=== PATIENT | female | born 1950 | race Hispanic/Latino ===

== ENCOUNTER 2017-06-22 15:33 | Emergency (ER) | payer BC ==
[2017-06-22] MEDS ORDERED: Sodium Chloride 0.9% 1,000 ML IV STA ×3 (16:03→17:45)
--- NOTE | 2017-06-22 16:19 | ED PDOC ---
HPI: General Adult Time Seen by Provider: 06/22/17 15:47 Chief Complaint (Nursing): Palpitations Chief Complaint (Provider): nausea, palpitations, hyperglycemia History/Exam Limitations: no limitations Have you had recent travel within the past 21 days to any of the following countries: [place], [place], [place] or [place]?: No Current Symptoms Are (Timing): Still Present Severity: Moderate Recently: Treated By A Physician Additional Complaint(s): 66yo female presents on recommendation of urgent care center for palpitations, nausea/vomiting and elevated blood sugar approx 240 at . States symptoms started yesterday afternoon, progressed today prompting UC visit. Denies polyuria, polydipsia or abdominal pain. Denies taking insulin prior, only oral medications sugars normally run 170-200. Recently started hydralazine for BP, hasnt taken for several days. Has poor tolerance to beta blockers in past. Past Medical History Reviewed: Historical Data, Nursing Documentation, Vital Signs Vital Signs: Last Vital Signs Temp 98.3 F 06/22/17 15:38 Pulse 112 H 06/22/17 16:23 Resp 18 06/22/17 15:38 BP 113/65 06/22/17 15:38 Pulse Ox 95 06/22/17 16:23 - Medical History PMH: Diabetes, HTN Other PMH: ulcerative colitis; on hormone replacement estrogen - Surgical History Surgical History: Cholecystectomy Other surgeries: sinus - Family History Family History: States: Unknown Family Hx - Social History Current smoker - smoking cessation education provided: No (quit 25yrs ago) Drugs: Denies - Allergies Allergies/Adverse Reactions: Allergies Allergy/AdvReac Type Severity Reaction Status Date / Time No Known Allergies Allergy Verified 06/22/17 15:45 Review of Systems Constitutional: Negative for: Fever, Chills Cardiovascular: Positive for: Palpitations. Negative for: Chest Pain Respiratory: Negative for: Cough, Shortness of Breath Gastrointestinal: Positive for: Nausea, Vomiting. Negative for: Abdominal Pain , Diarrhea Genitourinary Female: Negative for: Dysuria, Frequency Musculoskeletal: Negative for: Neck Pain, Back Pain Skin: Negative for: Rash, Lesions Neurological: Positive for: Dizziness (mild). Negative for: Weakness, Numbness , Seizures Psych: Negative for: Anxiety, Depression Physical Exam - Reviewed Nursing Documentation Reviewed: Yes - Physical Exam Appears: Positive for: Well, Non-toxic, No Acute Distress Head Exam: Positive for: ATRAUMATIC, NORMAL INSPECTION, NORMOCEPHALIC Skin: Positive for: Normal Color, Warm, DRY Eye Exam: Positive for: EOMI, Normal appearance, PERRL ENT: Positive for: Normal ENT Inspection Neck: Positive for: Normal, Painless ROM Cardiovascular/Chest: Positive for: Tachycardia. Negative for: Irregularly Irregular Respiratory: Positive for: CNT, Normal Breath Sounds Gastrointestinal/Abdominal: Positive for: Normal Exam, Bowel Sounds, Soft. Negative for: Tenderness Back: Positive for: Normal Inspection Extremity: Positive for: Normal ROM Neurologic/Psych: Positive for: Alert, financial analyst accountant II-XII (intact), Oriented, Gait ( normal) - Laboratory Results Result Diagrams: 06/22/17 16:48 06/22/17 16:48 - ECG ECG: Positive for: Interpreted By Me ECG Rhythm: Positive for: Sinus Tachycardia, Nonspecific Changes Interpretation Of ECG: t wave flatterning laterally Rate: 112 O2 Sat by Pulse Oximetry: 95 Pulse Ox Interpretation: Normal Medical Decision Making Medical Decision Making: workup for moderate hyperglycemia with mild resting tachycardia in setting of recent vomiting initiated Also on hormone replacement, notes some mild SOB. r.o metabolic derangement, r/o PE, r/o dehydration, r/o infectious or ischemic process underway labs reviewed DDimer elevated Moderate hyperglycemia but no evidence of DKA CTA chest ordered additional IVF and low dose insulin ordered Instructed hold metformin 2 days Disposition - Clinical Impression Clinical Impression: Palpitations, Dehydration, Hyperglycemia - Patient ED Disposition Is Patient to be Admitted: Transfer of Care - Disposition Disposition: Transfer of Care Disposition Time: 19:03 Forms: [employer] (Pashto) Patient Signed Over To: James Arreaga Handoff Comments: pending CTA/ dispo
--- NOTE | 2017-06-22 16:30 | RAD ---
HISTORY: SOB COMPARISON: No prior. FINDINGS: LUNGS: No active pulmonary disease. PLEURA: No significant pleural effusion identified, no pneumothorax apparent. CARDIOVASCULAR: Normal. OSSEOUS STRUCTURES: No significant abnormalities. VISUALIZED UPPER ABDOMEN: Normal. OTHER FINDINGS: None. IMPRESSION: No active disease.
[2017-06-22 16:41] LABS: VENOUS BLOOD GAS PCO2 40 mmHg (40-60); VENOUS BLOOD GAS PO2 32 mm/Hg (30-55); VENOUS BLOOD PH 7.43 (7.32-7.43)
[2017-06-22 16:55] LABS: BASO % 0.1 % (0.0-2.0); HEMOGLOBIN 14.7 g/dL (12.0-16.0); LYMPH # 0.7 K/uL (1.0-4.3); LYMPH % 8.7 % (20.0-40.0); MEAN CELL VOLUME 85.5 fl (81.0-99.0); MEAN CORPUSCULAR HEMOGLOBIN 29.3 pg (27.0-31.0); MEAN CORPUSCULAR HGB CONC 34.3 g/dL (33.0-37.0); MEAN PLATELET VOLUME 8.7 fl (7.2-11.7); MONO # 0.5 K/uL (0.0-0.8); NEUT # 6.8 K/uL (1.8-7.0); NEUT % 85.2 % (50.0-75.0); NRBC % 0.1 % (0.0-0.0); PLATELET COUNT 343 K/uL (130-400); RBC 5.01 Mil/uL (3.80-5.20); RED CELL DISTRIBUTION WIDTH 13.1 % (11.5-14.5)
[2017-06-22 17:03] LABS: PARTIAL THROMBOPLASTIN TIME 26.3 Seconds (25.6-37.1); PROTHROMBIN TIME 11.4 Seconds (9.8-13.1)
[2017-06-22 17:07] LABS: ALB/GLOB RATIO 1.3 (1.0-2.1); ALBUMIN 4.2 g/dL (3.5-5.0); ALT/SGPT 42 U/L (9-52); AST/SGOT 27 U/L (14-36); BLOOD UREA NITROGEN 24 mg/dl (7-17); CALCIUM 9.3 mg/dL (8.4-10.2); GFR AFRICAN-AMERICAN > 60; GFR NON-AFRICAN AMERICAN > 60
[2017-06-22 17:19] LABS: B-TYPE NATRIURETIC PEPTIDE 112 pg/ml (0-900)
[2017-06-22] MEDS ORDERED: Insulin Regular 100 units/ml IVP ONE (17:44)
[2017-06-22] MEDS ORDERED: Sodium Chloride 0.9% 100 ML ONE (17:58)
[2017-06-22] MEDS ORDERED: Iodixanol 320 MG/ML 100 ML BOTTLE IV ONE (17:58)
[2017-06-22 18:24] LABS: SQUAMOUS EPITHIAL 3 /hpf (0-5); URINE BILIRUBIN NEGATIVE (NEGATIVE); URINE BLOOD NEGATIVE (NEGATIVE); URINE CLARITY SLIGHTY-CLOUDY (Clear); URINE COLOR YELLOW (YELLOW); URINE GLUCOSE (UA) 50 mg/dL (Normal); URINE HYALINE CAST 0-2 /hpf (0-2); URINE LEUKOCYTE ESTERASE NEG Leu/uL (Negative); URINE PROTEIN 100 mg/dL (NEGATIVE); URINE UROBILINOGEN 0.2-1.0 mg/dL (0.2-1.0)
--- NOTE | 2017-06-22 18:49 | CT ---
PROCEDURE: CT Chest with contrast (Pulmonary Angiogram) HISTORY: r/o PE COMPARISON: None available. TECHNIQUE: Axial computed tomography images were obtained of the chest in the pulmonary arterial phase of enhancement. Coronal and sagittal reformatted images were created and reviewed. Intravenous contrast dose: 90 mL Visipaque 320 Radiation dose: Total exam DLP = 395.04 mGy-cm. This CT exam was performed using one or more of the following dose reduction techniques: Automated exposure control, adjustment of the mA and/or kV according to patient size, and/or use of iterative reconstruction technique. FINDINGS: PULMONARY ARTERIES: Unremarkable. No pulmonary embolism. AORTA: No acute findings. No thoracic aortic aneurysm. LUNGS: Dependent atelectasis posterior aspect both lower lobes. No infiltrate. PLEURAL SPACES: Unremarkable. No effusion or pneuomothorax. HEART: Unremarkable. No cardiomegaly. No significant pericardial effusion. LYMPH NODES: No lymphadenopathy. BONES, CHEST WALL: Unremarkable. No fracture or destructive lesion OTHER FINDINGS: Unremarkable. IMPRESSION: No evidence of acute pulmonary embolism. Unremarkable.
--- NOTE | 2017-06-22 20:09 | ED PDOC ---
- Laboratory Results Result Diagrams: 06/22/17 16:48 06/22/17 16:48 - ECG O2 Sat by Pulse Oximetry: 95 Medical Decision Making Medical Decision Makin:00 Patient transfer to mt by Dr. Pelaez pending CT. 8PM Patient reports that she's feeling much better and is going to followup with Cardiology at [facility]. CT was negative for PE. Current HR 83, Saturating 99% on RA. Patient tolerating PO. Return precautions discussed, strongly encouraged patient to followup with PMD/cards. Disposition - Clinical Impression Clinical Impression: Palpitations, Dehydration, Hyperglycemia - POA Present On Arrival: None - Disposition Disposition: Routine/Home Disposition Time: 20:32 Condition: IMPROVED Instructions: Hyperglycemia, Adult, Palpitations, Dehydration, Adult (DC) Forms: [email or web address] (Lao)
[2017-06-22 21:23] LABS: BANDS 3 % (0-2); HYPOCHROMIC SLIGHT; LYMPHOCYTE 15 % (20-50); MICROCYTOSIS SLIGHT; MONOCYTE 6 % (0-10); NEUTROPHIL 75 % (42-75); PLATELET ESTIMATE NORMAL (NORMAL); REACTIVE LYMPHOCYTES 1 % (0-0); TOTAL CELLS COUNTED 100
[2017-06-23 11:11] VITALS: BP 135/79; PULSE 88; RESP 18; TEMP 98.3; O2SAT 95
--- NOTE | 2017-06-23 18:40 | CARD ---
APPROVED REPORT EKG Measurement Heart [id number] NM [id number] <Conclusion> Sinus tachycardia Possible Left atrial enlargement Nonspecific ST and T wave abnormality Abnormal ECG
== END 2017-06-22 20:32 | disposition home or self-care (01) ==
LOC: H.ER 15:33
DX: R00.2 Palpitations (principal); E86.0 Dehydration; E11.65 Type 2 diabetes mellitus with hyperglycemia; I10 Essential (primary) hypertension
CPT/HCPCS: 71045; 71275; 80053; 81003; 82803; 83880; 84443; 84484; 85025; 85378; 85610; 85730; 93005; 96361; 96374; 99284; J7040; Q9967